=== PATIENT | female | born 1985 | race Caucasian/White ===

== ENCOUNTER 2021-06-17 07:55 | Outpatient (CLI) | payer OTHER, SELFPAY ==
--- NOTE | 2021-06-17 08:06 | MM_ITS ---
WS: [id number] DIAGNOSTIC LEFT DIGITAL BREAST TOMOSYNTHESIS MAMMOGRAPHY WITH CAD. HISTORY: LEFT BREAST PAIN COMPARISON: None available. Technique: CC, MLO and ML views. Spot compression LEFT CC. Breast composition: There are scattered areas of fibroglandular density. Dense fibroglandular band o f tissue in the upper-outer quadrant of the RIGHT breast. Marker indicating pain is near the 3-4 o'cl ock axis that are posterior depth. MM/[id number] IMPRESSION: BI-RADS: 2-Benign FOLLOW UP: See Report 1. Patient refused LEFT breast ultrasound. 2. As per the [employer] recommendations regarding a patien t of 35 years of age a diagnostic bilateral mammography should been requested.
== END 2021-06-17 07:56 | disposition home or self-care (01) ==
LOC: RAD 07:57
PROVIDERS: Visit Provider Family Medicine
DX: N64.4 Mastodynia (principal)
CPT/HCPCS: 77061